=== PATIENT | female | born 1960 | race Caucasian/White ===

== ENCOUNTER → 2023-02-03 14:41 | Outpatient (CLI) | payer OTHER, MEDICAID, SELFPAY ==
--- NOTE | 2023-02-03 14:43 | DI.RAD.S_ITS ---
PROCEDURE: XR KNEE LT 3V INDICATIONS: Left knee pain TECHNIQUE: 3 views of the knee were acquired. COMPARISON: None. FINDINGS: Bones: No fractures or dislocations. No suspicious bony lesions. Moderate left knee tricompartmental osteoarthritis with osseous hypertrophy and mild joint space narrowing. Soft tissues: No joint effusion. No suspicious soft tissue calcifications. IMPRESSION: Moderate left knee tricompartmental osteoarthritis Dictated by: Clari Cardoso MD, PhD on 02/03/2023 at 15:32 Approved by: Clari Cardoso MD, PhD on 02/03/2023 at 15:32
--- NOTE | 2023-02-03 14:43 | DI.RAD.S_ITS ---
PROCEDURE: XR KNEE RT 3V INDICATIONS: Right knee pain TECHNIQUE: 3 views of the knee were acquired. COMPARISON: [facility], , XR KNEE LT 3V, 02/03/2023, 14:48. FINDINGS: Bones: No fractures or dislocations. No suspicious bony lesions. Severe medial and patellofemoral compartment osteoarthritis with joint space narrowing and osseous hypertrophy. Moderate lateral compartment osteoarthritis with osteophytosis and slight joint space narrowing Soft tissues: No joint effusion. No suspicious soft tissue calcifications. IMPRESSION: Right knee tricompartmental osteoarthritis as described above. Dictated by: Clari Cardoso MD, PhD on 02/03/2023 at 15:32 Approved by: Clari Cardoso MD, PhD on 02/03/2023 at 15:33
== END ==
PROVIDERS: Referring Provider Anesthesiology; Visit Provider Anesthesiology
DX: M17.0 Bilateral primary osteoarthritis of knee (principal); M25.561 Pain in right knee; G89.29 Other chronic pain
CPT/HCPCS: 73562; 99214

== ENCOUNTER 2023-05-20 13:22 | Outpatient (CLI) | payer OTHER, MEDICAID, SELFPAY ==
[2023-05-20] VITALS (7 sets, daily range): BP systolic 97–145; BP diastolic 0–76; PULSE 56–64; RESP 12–18; TEMP 36.1; O2SAT 93–99
[2023-05-20] MEDS: MIDAZOLAM 2 MG/2 ML VIAL IV (13:50)
[2023-05-20] MEDS: BUPIVACAINE 0.5% (PF) 10 ML VIAL 5 ML INJ (13:56)
[2023-05-20] MEDS: iopamidoL 15 ML VIAL 3 ML INJ (13:57)
--- NOTE | 2023-05-20 14:00 | DI.RAD.S_ITS ---
PROCEDURE: PAIN PERIPHERAL NRV BLK OTHER INDICATIONS: RT KNEE ARTHRITIS COMPARISON: None. FINDINGS: Fluoroscopic spot filming was performed to verify placement of spinal needles at the the mid right genicular regions, as labeled on the films. Appropriate location(s) of the needle tip(s) was confirmed by injection of iodinated contrast. IMPRESSION: Right genicular blocks. Dictated by: Kirk Butts M.D. on 05/20/2023 at 16:41 Approved by: Kirk Butts M.D. on 05/20/2023 at 16:41
--- NOTE | 2023-05-20 16:41 | P.PCN_ITS ---
Date/Time/Diagnoses Date of procedure: 05/20/23 Time of procedure: 14:00 Procedure Notes Physician: Anastacio Palm Total Fluoroscopy time (seconds): 22 Total sedation minutes: 16 Procedure in detail & Post-procedure care: Right Genicular Nerve Injections Indications: Yamileth is presenting for treatment of right knee osteoarthritis with knee pain. Preoperative diagnosis: Right knee osteoarthritis Postoperative diagnosis: Same Focused Examination: Ax3 Mood and affect are normal Vital Signs: VSS Consent: Following review of allergies and potential side effects/complications, including, but not necessarily limited to, infection, allergic reaction, local tissue breakdown, stroke, temporary or permanent nerve injury, paralysis, and possible , the patient indicated that they understood and agreed to proceed.? An informed consent document was signed by the patient, witnessed by a nurse and placed in the patient's chart.? Additionally, other treatment options including medications and physical therapy were reviewed with the patient. All questions were answered. Site was then marked. Anesthesia: Local Position: Prone Monitoring: NIBP, Pulse oximetry, 3 lead EKG Needle used: 22 ga, 3.5 inch spinal Contrast: Isovue 300-M 2 mL Injectate: 0.5% bupivacaine 1 mL per site Technique: The skin was prepped with chloraprep and then draped in a sterile fashion. Time out was performed as per protocol. Oxygen applied via NC. Skin and subcutaneous structures of the needle entry sites were then infiltrated with 5 mL of lidocaine 1% divided among the 3 injection sites. Under AP and lateral fluoroscopic control, the needles were guided into the expected location of the superomedial, superolateral and inferomedial genicular nerves. Isovue 300-M was then injected and the spread confirmed proper needle location. There was no evidence for intravascular uptake. After negative aspiration, the above- mentioned injectate was then slowly administered to each site and the needles withdrawn. The patient expressed no unusual discomfort or paresthesias during the injection. Band-Aids applied to injection sites. EBL: less than 1 ml Complications: None Post Procedure: Patient was taken to the recovery and monitored. The patient was provided a Pain Log to continue to record the patient's response to the target- specific procedure prior to the patient's follow-up visit with the referring physician. Patient was stable upon discharge. Detailed post procedure instructions were provided. Patient was asked to call in the event of worsening pain, fever, weakness, numbness or bladder or bowel incontinence.
== END 2023-05-20 14:30 | disposition home or self-care (01) ==
LOC: RAD 13:23
PROVIDERS: Referring Provider Anesthesiology; Visit Provider Anesthesiology
DX: M17.11 Unilateral primary osteoarthritis, right knee (principal)
CPT/HCPCS: 64450; 64454; 99152; J2250